=== PATIENT | male | born 1955 | race Caucasian/White ===

== ENCOUNTER → 2016-08-30 | Outpatient (CLI) | payer BC, OTHER ==
--- NOTE | 2016-08-30 14:36 | DI ---
History: Neck pain. Procedure: 4 view x-ray study of the neck with flexion/extension. Prior examination none. Findings: Alignment of the cervical axis is straight. 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 Disc at C2-C3 appears normal. Disc at C3-C4 appears normal although the re is some anterior osteophyte formation present Moderate narrowing of the disc at C4-5 C5-6 and C6-7 with anterior osteophyte formation. Flexion and extension shows no discernible excursion in either direction. AP projection shows large marginal oste ophytes on both sides of the cervical axis. Lateral masses on the right side at C56 and C6-7 particul kiara conspicuous. Old left clavicle fracture, healed. Impression: Rather extensive degenerative disc disease from C4 inferiorly with a large amount of oste ophyte formation bilaterally right more so than left. This may limit range of motion Overall alignment is straight. C2-C3 congenital fusion posterior elements.
--- NOTE | 2016-08-30 14:38 | DI ---
History: Foreign body check or MRI. 2 view lateral face and AP [place]. Findings: Other than dental fillings, no metallic foreign objects are observed. No orbital metal iden tified Impression: No evidence of metallic foreign body that would restrict MRI. Incidental deviation nasal septum moderately to the left
--- NOTE | 2016-08-30 14:40 | DI ---
Mandible series. Reported metal shrapnel in tongue area that may interfere with MRI. 5 view study. Findings: Patient has numerous metallic dental fillings. There is no evidence of eccentric metal in t he oral cavity. Multiple views of the oral cavity including the lingual zone are unremarkable for met al. Impression: No metallic foreign material that would interfere with MRI study.
== END ==
LOC: RAD 11:29
PROVIDERS: ATTEND Physician Assistant
DX: M47.22 Other spondylosis with radiculopathy, cervical region (principal); S00.5 Superficial injury of lip and oral cavity; M79.5 Residual foreign body in soft tissue; J34.2 Deviated nasal septum; F17.210 Nicotine dependence, cigarettes, uncomplicated
CPT/HCPCS: 70030; 70110; 72050

== ENCOUNTER → 2016-11-17 | Outpatient (CLI) | payer BC ==
--- NOTE | 2016-11-17 15:16 | DI ---
MRI CERVICAL SPINE W/O CN,11/17/2016 10:55 AM: Clinical History: Neck pain. Previous Exam: None at this facility. Findings: Multiplanar MR images are obtained through the cervical spine without contrast. Bony alignment is jeremias tomic. No fractures are seen. There is some very mild increased marrow signal involving the C5 and C6 vertebral bodies. The spinal cord descends normally with normal course, caliber and signal characteristics. The posterior fossa is unremarkable without evidence of Chiari malformation. Prevertebral soft tissue s are unremarkable. Individual intervertebral disc spaces: C2/3: No significant stenosis. C3/4: There is mild disc desiccation, uncovertebral joint osteophytes and some facet hypertrophy cont ributing to mild left and moderate to severe right neuroforaminal narrowing. C4/5: There is disc desiccation, annular fissuring and a broad-based disc bulge eccentric to the righ t combining with uncovertebral joint and facet arthropathy to cause severe right and moderate left ne uroforaminal narrowing with moderate to severe central canal stenosis. C5/6: There is disc desiccation, annular fissuring and a 3 mm broad-based disc bulge combining with f acet hypertrophy and uncovertebral joint osteophytes to cause severe central canal stenosis with mode rate to severe right and moderate left neural foraminal narrowing. There is no abnormal signal within the spinal cord despite the severe stenosis. C6/7: There is near complete loss of intervertebral disc height at this level with uncovertebral join t osteophyte formation contributing to moderate to severe left and moderate right neuroforaminal narr owing with mild to moderate central canal stenosis. C7/T1: No significant stenosis. Impression: C3/4: There is mild disc desiccation, uncovertebral joint osteophytes and some facet hypertrophy cont ributing to mild left and moderate to severe right neuroforaminal narrowing. C4/5: There is disc desiccation, annular fissuring and a broad-based disc bulge eccentric to the righ t combining with uncovertebral joint and facet arthropathy to cause severe right and moderate left ne uroforaminal narrowing with moderate to severe central canal stenosis. C5/6: There is disc desiccation, annular fissuring and a 3 mm broad-based disc bulge combining with f acet hypertrophy and uncovertebral joint osteophytes to cause severe central canal stenosis with mode rate to severe right and moderate left neural foraminal narrowing. There is no abnormal signal within the spinal cord despite the severe stenosis. C6/7: There is near complete loss of intervertebral disc height at this level with uncovertebral join t osteophyte formation contributing to moderate to severe left and moderate right neuroforaminal narr owing with mild to moderate central canal stenosis.
== END ==
LOC: MRI 10:52
PROVIDERS: ATTEND Physician Assistant
DX: M54.2 Cervicalgia (principal); M50.11 Cervical disc disorder with radiculopathy, high cervical region; M50.121 Cervical disc disorder at C4-C5 level with radiculopathy; M50.122 Cervical disc disorder at C5-C6 level with radiculopathy; M50.123 Cervical disc disorder at C6-C7 level with radiculopathy
CPT/HCPCS: 72141

== ENCOUNTER → 2016-11-22 | Outpatient (CLI) | payer BC ==
[2016-11-22 07:33] LABS: HEMATOCRIT 48.1 % (42.0-52.0); HEMOGLOBIN 16.4 g/dL (14.0-18.0); MEAN CORPUSCULAR HEMOGLOBIN 29.9 PG (27-31); MEAN CORPUSCULAR HGB CONC 34.1 g/dL (33-37); MEAN CORPUSCULAR VOLUME 87.8 FL (80-90); MEAN PLATELET VOLUME 10.1 FL (7.4-12.2); RED BLOOD COUNT 5.48 10^6/uL (4.70-6.10)
[2016-11-22 07:39] LABS: BLOOD UREA NITROGEN 17 mg/dL (7-22); BUN/CREATININE RATIO 21.25 (6-20); CALCIUM 9.6 mg/dL (8.7-10.7); CHOL/HDL RATIO 5.11 RATIO (0-4.0); EST GLOMERULAR FILTRATION > 60 (>60 ml/min/1.73m(2)); HDL CHOLESTEROL 43 mg/dL (40-150); SERUM ALBUMIN 4.5 g/dL (3.5-4.8); SERUM CHOLESTEROL 220 mg/dL (120-200)
== END ==
LOC: LAB 07:15
PROVIDERS: ATTEND Neurological Surgery
DX: M54.2 Cervicalgia (principal); R03.0 Elevated blood-pressure reading, without diagnosis of hypertension; Z72.0 Tobacco use
CPT/HCPCS: 36415; 80053; 80061; 85027

== ENCOUNTER → 2016-12-28 | Outpatient (CLI) | payer SELFPAY ==
--- NOTE | 2016-12-28 10:41 | DI ---
CT CERVICAL SPINE W/O CONTRAST,12/28/2016 9:46 AM: Clinical History: Neck pain Previous Exam: October 25, 2008 Findings: Multiple helically acquired CT images are obtained through the cervical spine with sagittal and coron al reconstructions. The lung apices are clear. There has been some increasing degenerative change and some levoscoliosis of the mid cervical spine w hich has worsened since the prior exam. There is also been some worsening facet and uncovertebral marry nt degenerative changes and osteophyte formation. The base of the skull is unremarkable. There is rig htward deviation of the bony nasal septum. Degenerative changes cause some impingement on the neural foramina bilaterally at the C4/5, C5/6 and C6/7 levels. The prevertebral soft tissues are unremarkable. Impression: Worsening degenerative changes of the cervical spine with facet hypertrophy and uncovertebral joint o steophyte formation. No fractures.
== END ==
LOC: CT 09:40
PROVIDERS: ATTEND Neurological Surgery
DX: M54.2 Cervicalgia (principal); M47.812 Spondylosis without myelopathy or radiculopathy, cervical region
CPT/HCPCS: 72125